=== PATIENT | male | born 1975 | race Caucasian/White ===

== ENCOUNTER 2019-05-31 14:39 | Emergency (ER) | payer MEDICAID, MEDICARE ==
[~2019-05-31] VITALS: Ht 188 cm; Wt 63.6 kg
[~2019-05-31 14:39] MED LIST: BACL20TA PO; CHOL100024 PO; COLACE PO; DANT100C PO; DIAZ2TAB PO; GABA800T11 PO; OMEP20TA23 PO; OXYC10TA47 PO; POLY17PO10 PO; VARE1TAB21 PO
[2019-05-31 16:23] VITALS: BP 102/51
[2019-05-31 16:31] LABS: BASOPHILS % (AUTO) 0.3 % (0-1); EOSINOPHILS # (AUTO) 0.1 X10'3 (0-0.9); EOSINOPHILS % (AUTO) 1.6 % (0-6); HEMATOCRIT 39.2 % (42.0-52.0); HEMOGLOBIN 13.1 g/dl (14.0-17.9); LYMPHOCYTES # (AUTO) 1.8 X10'3 (1.1-4.8); LYMPHOCYTES % (AUTO) 28.9 % (21-51); MEAN CORPUSCULAR HEMOGLOBIN 30.4 PG (27.0-31.0); MEAN CORPUSCULAR HGB CONC 33.3 g/dL (33.0-36.5); MEAN CORPUSCULAR VOLUME 91.2 FL (78-98); MEAN PLATELET VOLUME 8.2 FL (7.4-10.4); MONOCYTES # (AUTO) 0.9 X10'3 (0-0.9); MONOCYTES % (AUTO) 14.9 % (2-12); NEUTROPHILS # (AUTO) 3.4 X10'3 (1.8-7.7); NEUTROPHILS % (AUTO) 54.3 % (42-75); PLATELET COUNT 423 X10'3 (140-440); RED CELL DISTRIBUTION WIDTH 14.7 % (11.5-14.5); WHITE BLOOD COUNT 6.3 X10'3 (4.5-11.0)
[2019-05-31 16:39] LABS: ALANINE AMINOTRANSFERASE 31 U/L (12-78); ALBUMIN 3.4 G/DL (3.4-5.0); ALBUMIN/GLOBULIN RATIO 0.9 (1.1-1.5); ALKALINE PHOSPHATASE 90 IU/L (46-116); ANION GAP 9 (8-16); ASPARTATE AMINO TRANSFERASE 19 U/L (10-37); BILIRUBIN,TOTAL 0.3 MG/DL (0.1-1.0); BLOOD UREA NITROGEN 20 MG/DL (7-18); BUN/CREATININE RATIO 27.8 (5.4-32.0); CALCIUM 8.7 MG/DL (8.5-10.1); CHLORIDE 107 MMOL/L (99-107); CREATININE 0.72 MG/DL (0.60-1.10); GLUCOSE 129 MG/DL (70-104); POTASSIUM 3.5 MMOL/L (3.5-5.1); SODIUM 144 MMOL/L (135-145); TOTAL CARBON DIOXIDE 28.4 MMOL/L (24-32); TOTAL PROTEIN 7.1 G/DL (6.4-8.2); eGFR > 90 ML/MIN
[2019-05-31 16:41] LABS: ETHANOL < 0.010 GM/DL (0.0-0.010)
== END 2019-05-31 18:58 | disposition home or self-care (01) ==
LOC: ER 14:39
DX: Z04.3 Encounter for examination and observation following other accident (principal); F10.920 Alcohol use, unspecified with intoxication, uncomplicated; R00.0 Tachycardia, unspecified; F15.90 Other stimulant use, unspecified, uncomplicated; Z88.6 Allergy status to analgesic agent; Z79.899 Other long term (current) drug therapy; Z59.0 Homelessness; W05.0XXA Fall from non-moving wheelchair, initial encounter; Y93.89 Activity, other specified; Y92.89 Other specified places as the place of occurrence of the external cause; Y99.8 Other external cause status; Y90.9 Presence of alcohol in blood, level not specified
CPT/HCPCS: 36415; 80053; 80320; 83605; 84145; 85025; 99284

== ENCOUNTER 2020-05-25 09:04 | Emergency (ER) | payer MEDICARE ==
[~2020-05-25] VITALS: Ht 177.8 cm; Wt 68.2 kg
[2020-05-25] MEDS ORDERED: normal saline 1000ML IV soln IV ONE (09:30)
[2020-05-25 11:12] LABS: BASOPHILS % (AUTO) 0.8 % (0-1); EOSINOPHILS # (AUTO) 0.2 X10'3 (0-0.9); HEMATOCRIT 43.5 % (42.0-52.0); HEMOGLOBIN 14.4 g/dl (14.0-17.9); LYMPHOCYTES # (AUTO) 1.7 X10'3 (1.1-4.8); MEAN CORPUSCULAR HEMOGLOBIN 30.4 PG (27.0-31.0); MEAN CORPUSCULAR HGB CONC 33.2 g/dL (33.0-36.5); MEAN CORPUSCULAR VOLUME 91.7 FL (78-98); MEAN PLATELET VOLUME 7.2 FL (7.4-10.4); MONOCYTES # (AUTO) 0.9 X10'3 (0-0.9); MONOCYTES % (AUTO) 14.4 % (2-12); NEUTROPHILS # (AUTO) 3.6 X10'3 (1.8-7.7); NEUTROPHILS % (AUTO) 55.8 % (42-75); PLATELET COUNT 464 X10'3 (140-440); RED BLOOD COUNT 4.74 X10'6 (4.70-6.10); RED CELL DISTRIBUTION WIDTH 13.8 % (11.5-14.5); WHITE BLOOD COUNT 6.5 X10'3 (4.5-11.0)
--- NOTE | 2020-05-25 11:23 | NUR ---
PT SLEEPING LAYING SUPINE, RESPIRATIONS EVEN AND UNLABORED. PT IS SNORING AT THIS TIME.
[2020-05-25 11:50] LABS: ALANINE AMINOTRANSFERASE 36 U/L (12-78); ALBUMIN 3.5 G/DL (3.4-5.0); ALKALINE PHOSPHATASE 86 IU/L (46-116); ANION GAP 7 (8-16); ASPARTATE AMINO TRANSFERASE 24 U/L (10-37); BILIRUBIN,TOTAL 0.4 MG/DL (0.1-1.0); BLOOD UREA NITROGEN 12 MG/DL (7-18); BUN/CREATININE RATIO 22.6 (5.4-32.0); CALCIUM 8.6 MG/DL (8.5-10.1); CHLORIDE 105 MMOL/L (99-107); CREATININE 0.53 MG/DL (0.60-1.10); GLUCOSE 82 MG/DL (70-104); POTASSIUM 3.2 MMOL/L (3.5-5.1); SODIUM 140 MMOL/L (135-145); TOTAL CARBON DIOXIDE 27.7 MMOL/L (24-32); TOTAL PROTEIN 6.9 G/DL (6.4-8.2); eGFR > 90 ML/MIN
[2020-05-25] MEDS ORDERED: potassium Cl 20 mEq SR tablet PO STA (11:52)
[2020-05-25 12:07] LABS: CREATINE KINASE 308 U/L (39-308)
[2020-05-25 13:17] VITALS: BP 129/83
== END 2020-05-25 13:26 | disposition home or self-care (01) ==
LOC: ER 09:05
DX: S02.2XXA Fracture of nasal bones, initial encounter for closed fracture (principal); S22.42XA Multiple fractures of ribs, left side, initial encounter for closed fracture; W08.XXXA Fall from other furniture, initial encounter; Y93.89 Activity, other specified; Y92.89 Other specified places as the place of occurrence of the external cause; Z91.81 History of falling; E86.0 Dehydration; E87.6 Hypokalemia; F15.10 Other stimulant abuse, uncomplicated; Z59.0 Homelessness; Z88.5 Allergy status to narcotic agent; Z88.0 Allergy status to penicillin; Z79.899 Other long term (current) drug therapy
CPT/HCPCS: 36415; 70450; 71045; 80053; 82550; 83605; 84145; 84443; 85025; 87040; 87077; 93005; 96360; 96361; 99285; J7030

== ENCOUNTER 2020-10-13 20:24 | Emergency (ER) | payer MEDICARE ==
[~2020-10-13] VITALS: Ht 172.7 cm; Wt 68.2 kg
--- NOTE | 2020-10-13 22:45 | NUR ---
Attempted to call , no answer
--- NOTE | 2020-10-14 00:18 | NUR ---
CALLED [facility] TO SEE IF PATIENT WAS STILL A RESIDENT AND COULD GO BACK. STAFF AT [facility] STATED PT LEFT AMA THIS AFTERNOON DUE TO "NOT BEING ABLE TO SMOKE" AT FACILITY. PT THEN STATES THAT IS WHEN CHOSE TO GO BACK TO [facility] AND [facility] VENTILATOR AT [facility] GOT HIM A WHEELCHAIR AND HE WAS DISCHARGED TO STREET DUE TO PERSONAL CHOICE OF HOMELESSNESS. PT REPORTS NOT BEING ALLOWED AT [facility].
--- NOTE | 2020-10-14 00:30 | NUR ---
Pt continues to argue with staff regarding personal choice to be homeless. Pt states he can no longer go to [place] or [place] and has no place to go. Pt denies that his choice to leave [facility] was a choice to be homeless.
--- NOTE | 2020-10-14 05:34 | NUR ---
Pt has been sleeping, even respirations and stable vitals entire time.
[2020-10-14 06:01] VITALS: BP 125/85
== END 2020-10-14 06:04 | disposition home or self-care (01) ==
LOC: ER 20:25
DX: Z02.89 Encounter for other administrative examinations (principal); G82.50 Quadriplegia, unspecified; F15.90 Other stimulant use, unspecified, uncomplicated; Z59.0 Homelessness; Z88.5 Allergy status to narcotic agent; Z88.0 Allergy status to penicillin; Z79.899 Other long term (current) drug therapy
CPT/HCPCS: 99285

== ENCOUNTER 2021-01-10 13:27 | Emergency (ER) | payer MEDICARE ==
[~2021-01-10] VITALS: Ht 182.9 cm; Wt 79.5 kg
[2021-01-10 13:42] VITALS: BP 131/77
[2021-01-10] MEDS ORDERED: normal saline 1000ML IV soln IVB ONE (14:05)
[2021-01-10 14:45] LABS: BASOPHILS # (AUTO) 0.1 X10'3 (0-0.2); BASOPHILS % (AUTO) 0.8 % (0-1); EOSINOPHILS # (AUTO) 0.2 X10'3 (0-0.9); EOSINOPHILS % (AUTO) 2.4 % (0-6); HEMATOCRIT 38.7 % (42.0-52.0); HEMOGLOBIN 13.2 g/dl (14.0-17.9); LYMPHOCYTES # (AUTO) 1.2 X10'3 (1.1-4.8); LYMPHOCYTES % (AUTO) 14.2 % (21-51); MEAN CORPUSCULAR HEMOGLOBIN 29.1 PG (27.0-31.0); MEAN CORPUSCULAR HGB CONC 34.2 g/dL (33.0-36.5); MEAN CORPUSCULAR VOLUME 85.2 FL (78-98); MEAN PLATELET VOLUME 7.2 FL (7.4-10.4); MONOCYTES # (AUTO) 1.1 X10'3 (0-0.9); MONOCYTES % (AUTO) 12.5 % (2-12); NEUTROPHILS % (AUTO) 70.1 % (42-75); PLATELET COUNT 558 X10'3 (140-440); RED BLOOD COUNT 4.55 X10'6 (4.70-6.10); RED CELL DISTRIBUTION WIDTH 15.7 % (11.5-14.5); WHITE BLOOD COUNT 8.6 X10'3 (4.5-11.0)
[2021-01-10 14:50] LABS: ALANINE AMINOTRANSFERASE 34 U/L (12-78); ALBUMIN 3.1 G/DL (3.4-5.0); ALBUMIN/GLOBULIN RATIO 0.8 (1.1-1.5); ALKALINE PHOSPHATASE 103 IU/L (46-116); ANION GAP 9 (8-16); ASPARTATE AMINO TRANSFERASE 25 U/L (10-37); BILIRUBIN,TOTAL 0.3 MG/DL (0.1-1.0); BLOOD UREA NITROGEN 9 MG/DL (7-18); BUN/CREATININE RATIO 19.6 (5.4-32.0); CHLORIDE 103 MMOL/L (99-107); CREATININE 0.46 MG/DL (0.60-1.10); GLUCOSE 100 MG/DL (70-104); LIPASE < 50 U/L (73-393); POTASSIUM 3.5 MMOL/L (3.5-5.1); SODIUM 140 MMOL/L (135-145); TOTAL CARBON DIOXIDE 28.5 MMOL/L (24-32); TOTAL PROTEIN 6.9 G/DL (6.4-8.2); eGFR > 90 ML/MIN
[2021-01-10 15:09] LABS: CREATINE KINASE 276 U/L (39-308); ETHANOL < 0.010 GM/DL (0.0-0.010)
[2021-01-10 16:58] LABS: CLARITY,URINE SLIGHTLY CLOUDY (Clear); COLOR,URINE YELLOW (Yellow); GLUCOSE, URINE NEGATIVE (Neg); KETONES,URINE TRACE mg/dl (Neg); LEUKOCYTE ESTERASE ,URINE NEGATIVE (Neg); NITRITES, URINE NEGATIVE (Neg); OCCULT BLOOD,URINE TRACE-INTACT (Neg); PROTEIN,URINE NEGATIVE (Neg); UROBILINOGEN,URINE 0.2 E.U/dL (0.2-1.0)
[2021-01-10 17:03] LABS: URINE AMPHETAMINE SCREEN POSITIVE (Neg); URINE BARBITUATE SCREEN NEGATIVE (Neg); URINE BENZODIAZEPINES SCREEN NEGATIVE (Neg); URINE CANNABINOID SCREEN POSITIVE (Neg); URINE COCAINE SCREEN NEGATIVE (Neg); URINE METHADONE SCREEN NEGATIVE (Neg); URINE OPIATE SCREEN NEGATIVE (Neg); URINE PHENCYCLIDINE SCREEN NEGATIVE (Neg)
[2021-01-10 17:04] LABS: UA COLLECTION TYPE STRAIGHT CATH
[2021-01-10 17:07] LABS: MUCUS STRANDS FEW /LPF (Neg); SQUAMOUS EPITHELIAL CELL,UR FEW /LPF (FEW)
[2021-01-10 17:09] LABS: BACTERIA,URINE FEW /HPF (Neg); RBC,URINE 0-2 /HPF (0-2); WBC,URINE NONE SEEN /HPF (0-4)
--- NOTE | 2021-01-10 20:49 | NUR ---
AFTER ABOUT AN HOUR ON THE PHONE CALLING VARIOUS BUSINESS IN THE [facility] WHERE PT WAS PICKED UP WE HAVE LOCATED HIS POWER WHEELCHAIR. IT IS BEHIND THE [facility] ON [address]. PT ASSISTED TO WHEELCHAIR AND [employer] HAS BEEN CALLED. WE WILL ASSIST PT INTO THE CAB AND THEN THE METAL TEMPERER WILL BE ADVISED TO CALL THE NON-EMERGENCY DISPATCH NUMBER WHEN THEY ARRIVE AND FIRE RESCUE WILL ASSIST PT INTO HIS CHAIR. [employer] IS AWARE AND IN AGREEMENT WITH THIS PLAN.
== END 2021-01-10 20:09 | disposition home or self-care (01) ==
LOC: ER 13:27
DX: T67.5XXA Heat exhaustion, unspecified, initial encounter (principal); R55 Syncope and collapse; R53.1 Weakness; F15.90 Other stimulant use, unspecified, uncomplicated; Z99.3 Dependence on wheelchair; Z79.899 Other long term (current) drug therapy; Z59.0 Homelessness; Z88.6 Allergy status to analgesic agent; Z88.0 Allergy status to penicillin; X58.XXXA Exposure to other specified factors, initial encounter; Y93.89 Activity, other specified; Y92.89 Other specified places as the place of occurrence of the external cause; Y99.8 Other external cause status
CPT/HCPCS: 36415; 80053; 80305; 80320; 81001; 82550; 83690; 85025; 93005; 96360; 96361; 99284; J7030